=== PATIENT | female | born 1955 | race African-American/Black ===

== ENCOUNTER 2017-12-09 12:00 | Emergency (ER) | payer MEDICARE ==
[~2017-12-09] VITALS: Ht 177.8 cm; Wt 95.0 kg
[~2017-12-09 12:00] MED LIST: HYDR-3516 PO; LISI-515 PO; LYRI100C PO; METF1000 PO; PARO20TA2 PO; TRIA.1%T TOPICAL
[2017-12-09 12:05] VITALS: BP 174/100; PULSE 47; RESP 16; TEMP 97.5
--- NOTE | 2017-12-09 12:26 | PD ---
HPI Chief Complaint: GI Complaint Time Seen by Provider: 12:14 Travel History International Travel<30 days: No Contact w/Intl Traveler<30days: No Traveled to known affect area: No History of Present Illness HPI 62yo F with PMH of DM and HTN presents to the ED with nausea and vomiting that started after eating pizza about half an hour ago. Pt is also diaphoretic and feels a little generalized abdominal pain as well as a little sob. Denies any cough, chest pain, focal weakness or numbness. PFSH Past Medical History Hx Anticoagulant Therapy: No Arthritis: Yes (RHEUMATOID) Autoimmune Disease: Yes Anxiety: Yes Depression: Yes Cancer: No Cardiovascular Problems: Yes (HTN, CHOL) High Cholesterol: Yes Diabetes: Yes Diminished Hearing: No Endocrine: Yes Genitourinary: Yes (HERPES) Hypertension: Yes Immune Disorder: Yes (RHEUMATOID) Implanted Vascular Access Dvce: No Musculoskeletal: Yes (CARPAL TUNNEL BILAT) Neurologic: No Psychiatric: Yes Respiratory: No Integumentary: Yes (ECZEMA) Immunizations Current: Yes Menopausal: Yes : 2 Para: 2 Tubal Ligation: Yes Past Surgical History Cholecystectomy: Yes Eye Surgery: Yes (PERIORBITAL CYST REMOVED 03/07) Oral Surgery: Yes (GUMS TRIMMED) Other Surgery: Yes (CHOLECYSTECTOMY) Social History Alcohol Use: No Tobacco Use: No Substance Use: No Allergies-Medications (Allergen,Severity, Reaction): Coded Allergies: No Known Allergies (Verified , 08/09/16) Reported Meds & Prescriptions Reported Meds & Active Scripts Active Triamcinolone Topical (Triamcinolone Acetonide) 0.1% Cream 1 Applic TOPICAL BID Reported Lisinopril 20 Mg Tab 20 Mg PO DAILY Metformin (Metformin HCl) 1,000 Mg Tab 1,000 Mg PO BIDPC With meals Lyrica (Pregabalin) 100 Mg Cap 100 Mg PO BID Hydrocodone-Acetaminophen 5-325 mg Tab 1 Tab PO Q6H PRN Paroxetine (Paroxetine HCl) 20 Mg Tab 20 Mg PO DAILY Review of Systems Except as stated in HPI: all other systems reviewed are Neg Physical Exam Narrative GENERAL: 62yo F in moderate distress. SKIN: Diaphoretic. HEAD: Atraumatic. Normocephalic. EYES: Pupils equal and round. No scleral icterus. No injection or drainage. ENT: No nasal bleeding or discharge. Mucous membranes pink and moist. NECK: Trachea midline. No JVD. CARDIOVASCULAR: Regular rate and rhythm. No murmur appreciated. RESPIRATORY: No accessory muscle use. Clear to auscultation. Breath sounds equal bilaterally. GASTROINTESTINAL: Abdomen soft, mild diffuse ttp. No rebound tenderness or guarding. MUSCULOSKELETAL: No obvious deformities. No clubbing. No cyanosis. No edema. NEUROLOGICAL: Awake and alert. No obvious cranial nerve deficits. Motor grossly within normal limits. Normal speech. PSYCHIATRIC: Appropriate mood and affect; insight and judgment normal. Data Data Last Documented VS Vital Signs Date Time Temp Pulse Resp B/P (MAP) Pulse Ox O2 Delivery O2 Flow Rate FiO2 12/09/17 13:18 56 135/87 (103) 95 12/09/17 12:05 97.5 16 Orders Orders Complete Blood Count With Diff (12/09/17 12:20) Troponin I (12/09/17 12:20) Chest, Single Ap (12/09/17 12:20) Lipase (12/09/17 12:20) Comprehensive Metabolic Panel (12/09/17 12:20) Ondansetron Inj (Zofran Inj) (12/09/17 12:30) Electrocardiogram (12/09/17 12:06) Labs Laboratory Tests Test 12/09/17 12:58 White Blood Count 6.9 TH/MM3 Red Blood Count 4.07 MIL/MM3 Hemoglobin 12.7 GM/DL Hematocrit 39.0 % Mean Corpuscular Volume 95.8 FL Mean Corpuscular Hemoglobin 31.1 PG Mean Corpuscular Hemoglobin Concent 32.5 % Red Cell Distribution Width 12.5 % Platelet Count 258 TH/MM3 Mean Platelet Volume 9.1 FL Neutrophils (%) (Auto) 47.1 % Lymphocytes (%) (Auto) 37.4 % Monocytes (%) (Auto) 6.5 % Eosinophils (%) (Auto) 7.4 % Basophils (%) (Auto) 1.6 % Neutrophils # (Auto) 3.2 TH/MM3 Lymphocytes # (Auto) 2.6 TH/MM3 Monocytes # (Auto) 0.4 TH/MM3 Eosinophils # (Auto) 0.5 TH/MM3 Basophils # (Auto) 0.1 TH/MM3 CBC Comment DIFF FINAL Differential Comment Blood Urea Nitrogen 17 MG/DL Creatinine 0.93 MG/DL Random Glucose 109 MG/DL Total Protein 8.3 GM/DL Albumin 3.2 GM/DL Calcium Level 9.3 MG/DL Alkaline Phosphatase 78 U/L Aspartate Amino Transf (AST/SGOT) 39 U/L Alanine Aminotransferase (ALT/SGPT) 35 U/L Total Bilirubin 0.4 MG/DL Sodium Level 140 MEQ/L Potassium Level 3.8 MEQ/L Chloride Level 107 MEQ/L Carbon Dioxide Level 27.0 MEQ/L Anion Gap 6 MEQ/L Estimat Glomerular Filtration Rate 73 ML/MIN Troponin I LESS THAN 0.02 NG/ML Lipase 173 U/L [facility] Medical Decision Making Medical Screen Exam Complete: Yes Emergency Medical Condition: Yes Interpretation(s) EKG: Sinus bradycardia at 47bpm. LAD. ST depression III. No significant ST segment elevation. Differential Diagnosis Gastroenteritis vs. ACS vs. obstruction vs. colitis Narrative Course 62yo F presents to the ED with active nonbloody, nonbilious vomiting after eating pizza that has been there for 2 days. Pt was initially very diaphoretic when she was vomiting so cardiac work up was ordered since pt is diabetic. Initially hypertensive and bradycardic since she was vomiting and repeat BP and HR improved after she was given zofran. Initially had some diffuse abdominal pain but pt was reevaluated after zofran and now has no abdominal pain at all. Abdomen is soft, NT/ND. No rebound tenderness or guarding. Labs reviewed, no leukocytosis. Lipase normal. Troponin negative. Glucose 109. Pt has been observed in the ED and feeling much better with no episode of vomiting. Pt tolerating PO. Denies any sob. CXR showed cardiomegaly without infiltrate or effusion. Return precautions given. Diagnosis Primary Impression: Vomiting Qualified Codes: R11.2 - Nausea with vomiting, unspecified Patient Instructions: General Instructions Departure Forms: Tests/Procedures Additional Instructions: Please follow up with your primary care physician as needed. Re Med/Other Pt SpecificInfo: No Change to Meds Disposition: 01 DISCHARGE HOME Condition: Stable Jayla Dee DO Dec 09, 2017 12:25
[2017-12-09] MEDS ORDERED: ONDANSETRON HCL 4 MG/2 ML VIAL IV PUSH ONE (12:30)
--- NOTE | 2017-12-09 12:45 | RADRPT ---
EXAM DATE/TIME: 12/09/2017 12:28 [facility] COMPARISON: No previous studies available for comparison. INDICATIONS : Short of breath, nausea and vomiting MEDICAL HISTORY : None. SURGICAL HISTORY : None. ENCOUNTER: Initial ACUITY: 1 day PAIN SCORE: 0/10 LOCATION: Bilateral chest FINDINGS: A single view of the chest demonstrates the lungs to be symmetrically aerated without evidence of mas s, infiltrate or effusion. Cardiac silhouette is prominent without overt failure. Total shoulder on the left. CONCLUSION: Cardiomegaly without failure. Dylon Stein MD FACR on December 09, 2017 at 12:42 Board Certified Radiologist. This report was verified electronically.
[2017-12-09 13:07] LABS: AUTOMATED NEUTROPHIL # 3.2 TH/MM3 (1.8-7.7); BASOPHIL # 0.1 TH/MM3 (0-0.2); BASOPHIL % 1.6 % (0.0-2.0); EOSINOPHIL # 0.5 TH/MM3 (0-0.4); EOSINOPHIL % 7.4 % (0.0-4.0); HEMOGLOBIN 12.7 GM/DL (11.6-15.3); LYMPH % 37.4 % (9.0-44.0); LYMPHOCYTE # 2.6 TH/MM3 (1.0-4.8); MEAN CELL VOLUME 95.8 FL (80.0-100.0); MEAN CORPUSCULAR HEMOGLOBIN 31.1 PG (27.0-34.0); MEAN CORPUSCULAR HGB CONC 32.5 % (32.0-36.0); MEAN PLATELET VOLUME 9.1 FL (7.0-11.0); MONO % 6.5 % (0.0-8.0); MONOCYTE # 0.4 TH/MM3 (0-0.9); NEUT % 47.1 % (16.0-70.0); PLATELET COUNT 258 TH/MM3 (150-450); RED BLOOD COUNT 4.07 MIL/MM3 (4.00-5.30); RED CELL DISTRIBUTION WIDTH 12.5 % (11.6-17.2); WHITE BLOOD COUNT 6.9 TH/MM3 (4.0-11.0)
[2017-12-09 13:17] LABS: CHLORIDE 107 MEQ/L (98-107); SODIUM (NA) 140 MEQ/L (136-145)
[2017-12-09 13:18] VITALS: BP 135/87; PULSE 56; O2SAT 95
[2017-12-09 13:20] LABS: CALCIUM 9.3 MG/DL (8.5-10.1)
[2017-12-09 13:21] LABS: ALBUMIN 3.2 GM/DL (3.4-5.0); BLOOD UREA NITROGEN 17 MG/DL (7-18); GLUCOSE,RANDOM 109 MG/DL (74-106)
[2017-12-09 13:23] LABS: ALT (GPT) 35 U/L (10-53)
[2017-12-09 13:24] LABS: AST (GOT) 39 U/L (15-37); CREATININE 0.93 MG/DL (0.50-1.00); GLOMERULAR FILTRATION RATE 73 ML/MIN (>89)
[2017-12-09 13:25] LABS: TOTAL BILIRUBIN ADULT 0.4 MG/DL (0.2-1.0); TOTAL PROTEIN 8.3 GM/DL (6.4-8.2)
[2017-12-09 13:27] LABS: ALKALINE PHOSPHATASE 78 U/L (45-117)
[2017-12-09 13:29] LABS: TROPONIN I LESS THAN 0.02 NG/ML (0.02-0.05)
--- NOTE | 2017-12-10 10:30 | EKG ---
Date Performed: 12/09/2017 Time Performed: 12:06:42 PTAGE: 62 years EKG: SINUS BRADYCARDIA PATTERN CONSISTENT WITH PULMONARY DISEASE LEFT ANTERIOR FASCICULAR BLOCK ABNORMAL ECG Since the PREVIOUS TRACING , no significant change noted PREVIOUS TRACIN10/30/2013 03.24 DOCTOR: Emil De Santiago Interpretating Date/Time 12/10/2017 10:28:37
== END 2017-12-09 15:37 | disposition home or self-care (01) ==
LOC: PHED 12:00
DX: R11.2 Nausea with vomiting, unspecified (principal); R00.1 Bradycardia, unspecified; I44.4 Left anterior fascicular block; R94.31 Abnormal electrocardiogram [ECG] [EKG]; I51.7 Cardiomegaly; E11.9 Type 2 diabetes mellitus without complications; I10 Essential (primary) hypertension; M06.9 Rheumatoid arthritis, unspecified; E78.00 Pure hypercholesterolemia, unspecified
CPT/HCPCS: 71045; 80053; 83690; 84484; 85025; 93005; 96374; 99285; J2405